=== PATIENT | male | born 1955 | race Two or more races ===

== ENCOUNTER 2023-07-06 16:11 | Inpatient (IN) | payer OTHER ==
[~2023-07-06] VITALS: Ht 170.2 cm; Wt 54.9 kg
[~2023-07-06 16:11] MED LIST: AVAPRO75 MG PO; BENADRYL50 MG PO; KLONOPIN0.5 MG/TAB PO; LAMICTAL100 MG PO; LEVOXYL25 MCG PO; RESTORIL30 MG PO
[2023-07-06] MEDS ORDERED: TOPROL XL50 M1 (16:27)
[2023-07-06] MEDS ORDERED: FOLIC ACID0.8 M1 (16:27)
[2023-07-06] MEDS ORDERED: TAMS0.4C PO (16:28)
[2023-07-06] MEDS ORDERED: ECOTRIN81 MG (16:28)
[2023-07-06] MEDS ORDERED: LIPITOR20 MG PO (16:28)
[2023-07-06] MEDS ORDERED: PROTONIX40 M1 PO (16:29)
[2023-07-06] MEDS ORDERED: XARELTO20 MG (16:30)
[2023-07-06] MEDS ORDERED: ARICEPT5 MG (16:30)
[2023-07-06] MEDS ORDERED: ESTAZOLAM2 MG (16:31)
[2023-07-06] MEDS ORDERED: HORIZANT600 MG (16:31)
[2023-07-06] MEDS ORDERED: TRAZODONE HCL150 MG (16:32)
[2023-07-06] MEDS ORDERED: RISPERDAL1 MG/1 ML PO (16:32)
[2023-07-06] MEDS ORDERED: PEPCID AC10 MG (16:33)
[2023-07-06] MEDS ORDERED: 0.9 % SODIUM CHLORIDE 500 ML IV SCH (17:15)
[2023-07-06 18:13] LABS: URINE APPEARANCE Clear; URINE BILIRRUBIN Negative (NEGATIVE); URINE BLOOD Negative; URINE COLOR Yellow; URINE GLUCOSE Negative (NEGATIVE); URINE LEUKOCYTE Negative; URINE NITRATE Negative; URINE PROTEIN Negative (NEGATIVE); URINE UROBILINOGEN 0.2 E.U./dl
[2023-07-06 18:16] LABS: URINE EPITHELIAL CELLS 2.4 uL (0.0-38.8)
[2023-07-06 18:21] LABS: URINE RBC 0.4 uL (0.0-20.8); URINE WBC 0.3 uL (0.0-23.2)
[2023-07-06 19:00] LABS: MEAN CORPUSCULAR HGB CONC 30.7 g/dl (32.0-36.0); PLATELET COUNT 182 K/uL (150-450); RED BLOOD COUNT 3.54 M/uL (4.00-6.00)
[2023-07-06 19:03] LABS: BILIRUBIN TOTAL 0.41 mg/dL (0.3-1.2); BILIRUBIN,CONJUGATED 0.16 mg/dL (0.0-0.2); BILIRUBIN,UNCONJUGATED 0.25 mg/dL (0.0-0.6); CALCIUM 9.2 mg/dL (8.5-10.1); CREATININE SERUM 0.89 mg/dL (0.70-1.30); GFR 84.5; GLOBULINA 3.3 G/DL (2.4-3.5); POTASSIUM 3.94 mEq/L (3.5-5.1); TOTAL PROTEIN 7.3 gm/dL (6.4-8.2)
[2023-07-06 19:11] LABS: HEMOGLOBIN 7.5 g/dL (13-16.00); MEAN CELL VOLUME 69.1 fL (80.0-100.00); MEAN CORPUSCULAR HEMOGLOBIN 21.1 pg (27.00-32.0)
[2023-07-06 19:12] LABS: HEMATOCRIT 24.5 % (39.0-48.0)
[2023-07-06 20:41] LABS: INR 1.12; PARTIAL THROMBOPLASTIN TIME 26.2 SECONDS (22.0-34.0); PROTHROMBIN TIME 11.7 SECONDS (9.0-11.5)
[2023-07-06 20:45] LABS: RED CELL DISTRIBUTION WIDTH 20.2 % (11.5-14.5)
[2023-07-06] MEDS ORDERED: PANTOPRAZOLE SODIUM 40 MG/VIAL VIAL IV SCH (22:04)
[2023-07-06] MEDS ORDERED: CEFTRIAXONE SODIUM 2,000 MG in 0.9 % SODIUM CHLORIDE 100 ML IV SCH (22:08)
[2023-07-06] MEDS ORDERED: FUROsemide 20 MG/2 ML VIAL IV SCH (22:15)
[2023-07-06] MEDS ORDERED: ACETAMINOPHEN 500 MG GEL..CAP PO PRN (22:15)
[2023-07-06] MEDS ORDERED: ONDANSETRON HCL 4 MG in 0.9 % SODIUM CHLORIDE 50 ML IV PRN (22:15)
[2023-07-07 01:34] LABS: CHOL HDL RATIO 2.3 (0-5.0)
[2023-07-07 02:02] LABS: INR 1.14; PARTIAL THROMBOPLASTIN TIME 26.6 SECONDS (22.0-34.0); PROTHROMBIN TIME 11.9 SECONDS (9.0-11.5)
[2023-07-07] MEDS ORDERED: LEVOTHYROXINE SODIUM 25 MCG TABLET PO SCH (06:00)
[2023-07-07] MEDS ORDERED: METOPROLOL SUCCINATE 50 MG TAB.SR.24H PO SCH (09:00)
[2023-07-07] MEDS ORDERED: TAMSULOSIN HCL 0.4 MG CAP PO SCH (09:00)
[2023-07-07] MEDS ORDERED: IRBESARTAN 75 MG TABLET PO SCH (09:00)
[2023-07-07] MEDS ORDERED: RISPERIDONE 1 MG TABLET PO SCH ×2 (09:00→21:00)
[2023-07-07] MEDS ORDERED: TRAZODONE HCL 50 MG TABLET PO SCH (21:00)
[2023-07-07] MEDS ORDERED: CLONAZEPAM 0.5 MG TABLET PO SCH (21:00)
[2023-07-08 17:44] LABS: CALCIUM 9.1 mg/dL (8.5-10.1); CREATININE SERUM 0.78 mg/dL (0.70-1.30); GFR 98.4; MAGNESIUM 1.9 mg/dL (1.8-2.4); POTASSIUM 3.35 mEq/L (3.5-5.1)
[2023-07-08 17:46] LABS: HEMATOCRIT 37.6 % (39.0-48.0); HEMOGLOBIN 12.2 g/dL (13-16.00); MEAN CELL VOLUME 74.3 fL (80.0-100.00); MEAN CORPUSCULAR HEMOGLOBIN 24.2 pg (27.00-32.0); MEAN CORPUSCULAR HGB CONC 32.5 g/dl (32.0-36.0); PLATELET COUNT 166 K/uL (150-450); RED BLOOD COUNT 5.06 M/uL (4.00-6.00); RED CELL DISTRIBUTION WIDTH 23.4 % (11.5-14.5)
[2023-07-09 08:22] LABS: HEMOGLOBIN 11.7 g/dL (13-16.00); MEAN CELL VOLUME 74.3 fL (80.0-100.00); MEAN CORPUSCULAR HEMOGLOBIN 24.1 pg (27.00-32.0); MEAN CORPUSCULAR HGB CONC 32.5 g/dl (32.0-36.0); PLATELET COUNT 155 K/uL (150-450); RED BLOOD COUNT 4.84 M/uL (4.00-6.00); RED CELL DISTRIBUTION WIDTH 22.9 % (11.5-14.5)
[2023-07-09 08:57] LABS: CALCIUM 8.9 mg/dL (8.5-10.1); CREATININE SERUM 0.6 mg/dL (0.70-1.30); GFR 133.19; POTASSIUM 3.29 mEq/L (3.5-5.1)
[2023-07-09] MEDS ORDERED: POTASSIUM BICARBONATE/CIT AC 25 MEQ TABLET.EFF PO ONE (13:15)
[2023-07-09] MEDS ORDERED: SOD FERRIC GLUC COMPLX/SUCROSE 62.5 MG in 0.9 % SODIUM CHLORIDE 50 ML IV SCH (16:00)
[2023-07-10 05:15] LABS: HEMATOCRIT 33.1 % (39.0-48.0); HEMOGLOBIN 10.8 g/dL (13-16.00); MEAN CELL VOLUME 74.8 fL (80.0-100.00); MEAN CORPUSCULAR HEMOGLOBIN 24.4 pg (27.00-32.0); MEAN CORPUSCULAR HGB CONC 32.6 g/dl (32.0-36.0); PLATELET COUNT 142 K/uL (150-450); RED BLOOD COUNT 4.42 M/uL (4.00-6.00); RED CELL DISTRIBUTION WIDTH 22.9 % (11.5-14.5)
[2023-07-10 05:26] LABS: CALCIUM 8.2 mg/dL (8.5-10.1); CREATININE SERUM 0.67 mg/dL (0.70-1.30); GFR 117.27; MAGNESIUM 1.7 mg/dL (1.8-2.4); POTASSIUM 3.76 mEq/L (3.5-5.1)
[2023-07-10] MEDS ORDERED: MAGNESIUM SULFATE IN WATER 50 ML IV ONE (11:30)
[2023-07-10 14:31] LABS: ob POSITIVE (NEGATIVE)
[2023-07-10] MEDS ORDERED: CLONAZEPAM 0.5 MG TABLET PO SCH (17:00)
[2023-07-10] MEDS ORDERED: PATIENTS OWN MEDICATION (MEDICAMENTO EN PISO) PO SCH (21:00)
[2023-07-10] MEDS ORDERED: GABAPENTIN 800 MG TABLET PO SCH (21:00)
[2023-07-11 07:01] LABS: BILIRUBIN TOTAL 0.74 mg/dL (0.3-1.2); CALCIUM 8.3 mg/dL (8.5-10.1); CREATININE SERUM 0.71 mg/dL (0.70-1.30); GFR 109.68; GLOBULINA 2.2 G/DL (2.4-3.5); POTASSIUM 3.73 mEq/L (3.5-5.1); TOTAL PROTEIN 5.2 gm/dL (6.4-8.2)
[2023-07-11 07:44] LABS: HEMATOCRIT 32.3 % (39.0-48.0); HEMOGLOBIN 10.3 g/dL (13-16.00); MEAN CORPUSCULAR HEMOGLOBIN 24.1 pg (27.00-32.0); MEAN CORPUSCULAR HGB CONC 31.7 g/dl (32.0-36.0); PLATELET COUNT 139 K/uL (150-450); RED BLOOD COUNT 4.25 M/uL (4.00-6.00); RED CELL DISTRIBUTION WIDTH 23.3 % (11.5-14.5)
[2023-07-11 14:57] LABS: PLATELET ESTIMATE NORMAL (NORMAL)
[2023-07-13 05:40] LABS: HEMATOCRIT 31.8 % (39.0-48.0); HEMOGLOBIN 10.4 g/dL (13-16.00); MEAN CELL VOLUME 75.3 fL (80.0-100.00); MEAN CORPUSCULAR HEMOGLOBIN 24.6 pg (27.00-32.0); MEAN CORPUSCULAR HGB CONC 32.7 g/dl (32.0-36.0); RED BLOOD COUNT 4.22 M/uL (4.00-6.00); RED CELL DISTRIBUTION WIDTH 24.2 % (11.5-14.5)
[2023-07-13 05:41] LABS: PLATELET COUNT 124 K/uL (150-450)
[2023-07-13 05:50] LABS: BILIRUBIN TOTAL 0.57 mg/dL (0.3-1.2); CALCIUM 7.9 mg/dL (8.5-10.1); CREATININE SERUM 0.6 mg/dL (0.70-1.30); GFR 133.19; GLOBULINA 2.1 G/DL (2.4-3.5); POTASSIUM 3.65 mEq/L (3.5-5.1); TOTAL PROTEIN 5.1 gm/dL (6.4-8.2)
[2023-07-13] MEDS ORDERED: POLYETHYLENE GLYCOL 3350 238 GM POWDER PO ONE (13:00)
[2023-07-14 08:57] LABS: HEMATOCRIT 34.6 % (39.0-48.0); MEAN CELL VOLUME 75.2 fL (80.0-100.00); MEAN CORPUSCULAR HEMOGLOBIN 23.9 pg (27.00-32.0); MEAN CORPUSCULAR HGB CONC 31.8 g/dl (32.0-36.0); PLATELET COUNT 129 K/uL (150-450)
[2023-07-14 08:58] LABS: RED CELL DISTRIBUTION WIDTH 25.3 % (11.5-14.5)
[2023-07-14] MEDS ORDERED: Cyanocobalamin/Mecobalamin 1 TAB.SL SL SCH (09:00)
[2023-07-14] MEDS ORDERED: FOLIC ACID 1 MG TABLET PO SCH (09:00)
[2023-07-14 09:22] LABS: ALBUMIN 3.5 gm/dL (3.4-5.0); BILIRUBIN TOTAL 0.84 mg/dL (0.3-1.2); CALCIUM 8.8 mg/dL (8.5-10.1); CREATININE SERUM 0.61 mg/dL (0.70-1.30); GFR 130.68; GLOBULINA 2.3 G/DL (2.4-3.5); MAGNESIUM 1.9 mg/dL (1.8-2.4); POTASSIUM 3.7 mEq/L (3.5-5.1); TOTAL PROTEIN 5.8 gm/dL (6.4-8.2)
[2023-07-14] MEDS ORDERED: DIPHENHYDRAMINE HCL 50 MG/ML VIAL 1ML IV ONE (15:00)
[2023-07-14] MEDS ORDERED: fentaNYL CITRATE 50 MCG/ML AMPUL IV ONE (15:00)
[2023-07-14] MEDS ORDERED: MIDAZOLAM HCL 2 MG/2 ML VIAL IV ONE (15:00)
[2023-07-15] MEDS ORDERED: PROTONIX40 MG PO (08:32)
[2023-07-15] MEDS ORDERED: FUSION PLUS CA1 EACH PO (08:32)
== END 2023-07-15 11:57 | disposition home or self-care (01) | DRG 812 ==
LOC: ER 16:11 → ICU-2 22:40 → MEDJ 07-08 11:55
PROVIDERS: Emergency Medicine; General Practice; ADMIT Internal Medicine; ATTEND Internal Medicine
PROC: BW21YZZ Computerized Tomography (CT Scan) of Abdomen and Pelvis using Other Contrast (ICD-10-PCS; 2023-07-06)
PROC: B24BZZZ Ultrasonography of Heart with Aorta (ICD-10-PCS; 2023-07-06)
PROC: 30233N1 Transfusion of Nonautologous Red Blood Cells into Peripheral Vein, Percutaneous Approach (ICD-10-PCS; 2023-07-07)
PROC: 4A12X4Z Monitoring of Cardiac Electrical Activity, External Approach (ICD-10-PCS; 2023-07-08)
PROC: CD271ZZ Tomographic (Tomo) Nuclear Medicine Imaging of Gastrointestinal Tract using Technetium 99m (Tc-99m) (ICD-10-PCS; 2023-07-08)
PROC: 0DJD8ZZ Inspection of Lower Intestinal Tract, Via Natural or Artificial Opening Endoscopic (ICD-10-PCS; principal; 2023-07-14)
DX: D64.9 Anemia, unspecified (principal); Q23.1 Congenital insufficiency of aortic valve; K57.30 Diverticulosis of large intestine without perforation or abscess without bleeding; I11.9 Hypertensive heart disease without heart failure; I48.0 Paroxysmal atrial fibrillation; E03.9 Hypothyroidism, unspecified; K64.8 Other hemorrhoids; I34.1 Nonrheumatic mitral (valve) prolapse; E78.5 Hyperlipidemia, unspecified; F31.9 Bipolar disorder, unspecified